=== PATIENT | male | born 1965 | race Hispanic/Latino ===

== ENCOUNTER 2021-12-27 18:30 | Inpatient (IN) | payer SELFPAY ==
--- NOTE | 2021-12-27 19:04 | RAD REPORT ---
EXAM DESCRIPTION: CT - Ct Stroke Brain Wo Cont - 12/27/2021 6:57 pm CLINICAL HISTORY: stroke symptoms COMPARISON: CT ABD PELVIS W CONTRAST dated 08/14/2011No comparisons TECHNIQUE: All CT scans are performed using dose optimization technique as appropriate and may inclu de automated exposure control or mA/KV adjustment according to patient size. FINDINGS: No intracranial hemorrhage, hydrocephalus or extra-axial fluid collection.No areas of brai n edema or evidence of midline shift. The paranasal sinuses and mastoids are clear. The calvarium is intact. IMPRESSION: No acute intracranial abnormality. Results called to Dr. Otto by Dr. Deleon at 1840 on 12/27/21
[2021-12-27 19:09] LABS: Absolute Lymphocytes (CBC) 1.7 K/uL (0.7-4.9); Hematocrit 37.7 % (39.6-49.0); Lymphocytes % 19.5 % (15.3-44.8); MCV 94.4 fL (80-100); RBC Red Blood Cell Count 3.99 M/uL (4.33-5.43)
[2021-12-27 19:15] LABS: Protime INR 1.03
[2021-12-27 19:24] LABS: Potassium 3.9 mmol/L (3.5-5.1)
[2021-12-27] MEDS ORDERED: ASPIRIN EC 325 MG TABLET PO ONE (19:45)
--- NOTE | 2021-12-27 20:04 | RAD REPORT ---
EXAM DESCRIPTION: RAD - Chest Single View - 12/27/2021 7:44 pm CLINICAL HISTORY: Stroke COMPARISON: No comparisons FINDINGS: Lines: None. Lungs: No evidence of edema or pneumonia. Pleural: No significant pleural effusions or pneumothorax. Cardiac: The heart size is within normal limits. Bones: No acute fractures. Other: IMPRESSION: No acute cardiopulmonary disease.
--- NOTE | 2021-12-27 20:21 | RAD REPORT ---
EXAM DESCRIPTION: CT - Neck Angio - 12/27/2021 8:14 pm CLINICAL HISTORY: stroke like symptoms COMPARISON: No comparisons TECHNIQUE: CT angiography of the neck vessels was performed with MIPs. All CT scans are performed using dose optimization technique as appropriate and may include automated exposure control or mA/KV adjustment according to patient size. FINDINGS: A left aortic arch is identified with normal three vessel configuration of the great vesse ls. No significant flow abnormality is seen of the common carotid bilaterally. No significant stenosis is identified involving the cervical segments of both internal carotid arteri es. Normal flow is seen within both vertebral arteries. IMPRESSION: No significant flow abnormality of the neck vessels is identified.
--- NOTE | 2021-12-27 20:21 | RAD REPORT ---
EXAM DESCRIPTION: CT - Head angio - 12/27/2021 8:13 pm CLINICAL HISTORY: stroke like symptoms COMPARISON: Ct Stroke Brain Wo Cont dated 12/27/2021 TECHNIQUE: CT angiography of the head was performed with MIPs. All CT scans are performed using dose optimization technique as appropriate and may include automated exposure control or mA/KV adjustment according to patient size. FINDINGS: Anterior circulation: ICA calcifications. No aneurysm or large vessel occlusion. No hemodynamically significant stenosis. N o arteriovenous malformation identified. Posterior circulation: type right INSURANCE SALES ASSOCIATE. No aneurysm or large vessel occlusion. No hemodynamically significant stenosis. No arteriovenous malformation identified. IMPRESSION: No significant flow abnormality is detected.
--- NOTE | 2021-12-27 20:44 | EDPHYS ---
Physician Documentation [facility] Name: Lio Brennan Age: 56 yrs Sex: Male : 1965 Arrival Date: 12/27/2021 Time: 18:31 Bed 3 Private MD: ED Physician Alessandro Kent HPI: 12/27 18:35 This 56 yrs old Male presents to ER via EMS with complaints of L sided sd2 weakness, fall. 18:35 56-year-old male with no known past medical history presents via EMS with chief sd2 complaint of left-sided weakness. They report the patient's last known well time was 1800 today and he began to have some left-sided weakness and had difficulty walking and fell and hit his head. They report when they arrived the patient was awake, alert with no focal neuro deficits. The patient then while they were speaking to him had acute onset of left-sided facial droop and left sided weakness which then subsequently resolved once again prior to arrival. Patient does not currently take any medications or blood thinners. He does not have any prior history of stroke. He denies any fevers, recent illness or other symptoms. He denies any recent substance abuse.. Historical: - Allergies: 18:35 No Known Allergies; bp - Home Meds: 18:35 None [Active]; bp - PMHx: 18:35 None; bp - Immunization history:: Adult Immunizations unknown. - Social history:: Smoking status: Patient denies any tobacco usage or history of. ROS: 18:35 Constitutional: Negative for fever, chills, and weight loss, Eyes: Negative for injury, sd2 pain, redness, and discharge, Cardiovascular: Negative for chest pain, palpitations, and edema, Respiratory: Negative for shortness of breath, cough, wheezing. Abdomen/GI: Negative for abdominal pain, nausea, vomiting, diarrhea. Back: Negative for injury and pain, MS/Extremity: Negative for injury and deformity, Skin: Negative for injury, rash, and discoloration, Neuro: Negative for headache, numbness and tingling. Positive for weakness and facial droop. Hematologic/Lymphatic: Negative for swollen nodes, abnormal bleeding, and unusual bruising. Exam: 18:35 Constitutional: This is a well developed, well nourished patient who is awake, alert, sd2 and in no acute distress. Head/Face: Normocephalic, atraumatic. 19:16 ECG was reviewed by the Attending Physician. Sinus bradycardia, rate 59, no STEMI sd2 criteria Vital Signs: 18:41 BP 129 / 83; Pulse 70; Resp 16; Temp 98; Pulse Ox 98% ; bp 18:43 BP 126 / 81; Pulse 68; Resp 16; Pulse Ox 100% ; bp 20:24 BP 140 / 70; Pulse 72; Pulse Ox 100% ; kl 21:51 BP 129 / 69; kl NIH Stroke Scale Scores: 19:28 NIHSS Score: 0 kl 22:56 NIHSS Score: 1 kl MDM: 18:34 Patient medically screened. sd2 19:16 Differential diagnosis: closed head injury, CVA, TIA, anemia, dehydration, electrolyte sd2 abnormality among others. Physician consultation: Remy Waters MD was called at 18:43, was contacted at 18:43, regarding consult, Recommends CTA to rule out LVO and need for transfer. Otherwise, give ASA and regular stroke workup with admission to hospital. . 19:20 ED course: CT head negative. CTA and labs pending. Pt remains asymptomatic aside from sd2 dizziness. Care of patient signed over to Dr. Kent at this time with disposition plan pending CTA results.. 12/28 05:45 Data reviewed: vital signs, nurses notes, lab test result(s), radiologic studies, and ms3 as a result, I will admit patient. Counseling: I had a detailed discussion with the patient and/or guardian regarding:. ED course: Discussed case with Zeferino Busch NP and he accepts patient on behalf of the Hospitalist group.. 12/27 18:50 Order name: Basic Metabolic Panel; Complete Time: 19:53 12/27 18:50 Order name: CBC with Diff; Complete Time: 19:53 12/27 18:50 Order name: Protime (+inr); Complete Time: 19:53 12/27 18:50 Order name: Ptt, Activated; Complete Time: 19:53 12/27 18:50 Order name: CT Stroke Brain w/o Contrast; Complete Time: 19:53 12/27 20:44 Order name: SARS RAPID as6 12/27 18:50 Order name: Stroke CXR 1 View; Complete Time: 20:14 sd2 /23 18:50 Order name: EKG; Complete Time: 18:50 12/27 18:50 Order name: Accucheck; Complete Time: 19:03 12/27 18:50 Order name: Cardiac monitoring; Complete Time: 19:03 12/27 18:50 Order name: EKG - Nurse/Tech; Complete Time: 19:03 12/27 18:50 Order name: CT Head Angio; Complete Time: 20:40 12/27 18:50 Order name: CT Neck Angio; Complete Time: 20:40 12/27 18:50 Order name: IV Saline Lock; Complete Time: 19:03 12/27 18:50 Order name: Labs collected and sent; Complete Time: 19:03 12/27 18:50 Order name: NPO; Complete Time: 19:03 12/27 18:50 Order name: O2 Per Protocol; Complete Time: 19:03 12/27 18:50 Order name: O2 Sat Monitoring; Complete Time: 19:03 12/27 18:50 Order name: Stroke Swallow Screen; Complete Time: 19:03 sd2 Administered Medications: 12/27 19:38 Drug: Aspirin 325 mg Route: PO; Disposition Summary: 12/27/21 20:43 Hospitalization Ordered Hospitalization Status: Inpatient Admission ms3 Provider: Alberto Villasenor ms3 Location: Telemetry/MedSurg (Inpatient) ms3 Condition: Stable ms3 Problem: new ms3 Symptoms: are unchanged ms3 [facility] Room Assignment: 201(12/27/21 22:04) as6 Diagnosis - Cerebrovascular accident ms3 Forms: - Medication Reconciliation Form ms3 - SBAR form ms3 NIH Stroke Scale - NIH Stroke Score Date: 12/27/2021 Time: 19:28 Total Score = 0 1a. Level of Consciousness (LOC) - 0(Alert) 1b. Level of Consciousness (LOC) (Month \T\ Age) - 0(Both) 1c. LOC Commands (Open \T\ Closes Eyes/Furniture Reproducer) - 0(Both) 2. Best Gaze (Lateral Gaze Paresis) - 0(Normal) 3. Visual Field Loss - 0(No visual loss) 4. Facial Palsy - 0(Normal) 5a. Left Arm: Motor (10-second hold) - 0(No drift) 5b. Right Arm: Motor (10-second hold) - 0(No drift) 6a. Left Leg: Motor (5-second hold - always test supine) - 0(No drift) 6b. Right Leg: Motor (5-second hold - always test supine) - 0(No drift) 7. Limb Ataxia (finger/nose \T\ heel/jama - test with eyes open) - 0(Absent) 8. Sensory Loss (pinprick arms/legs/face) - 0(Normal) 9. Best Language: Aphasia (description/naming/reading) - 0(No aphasia) 10. Dysarthria (speech clarity - read or repeat words) - 0(Normal) 11. Extinction and Inattention (visual/tactile/auditory/spatial/personal) - 0(No abnormality) Initials: nella NIH Stroke Scale - NIH Stroke Score Date: 12/27/2021 Time: 22:56 Total Score = 1 1a. Level of Consciousness (LOC) - 0(Alert) 1b. Level of Consciousness (LOC) (Month \T\ Age) - 0(Both) 1c. LOC Commands (Open \T\ Closes Eyes/Furniture Reproducer) - 0(Both) 2. Best Gaze (Lateral Gaze Paresis) - 0(Normal) 3. Visual Field Loss - 0(No visual loss) 4. Facial Palsy - 0(Normal) 5a. Left Arm: Motor (10-second hold) - 1(Drift) 5b. Right Arm: Motor (10-second hold) - 0(No drift) 6a. Left Leg: Motor (5-second hold - always test supine) - 0(No drift) 6b. Right Leg: Motor (5-second hold - always test supine) - 0(No drift) 7. Limb Ataxia (finger/nose \T\ heel/jama - test with eyes open) - 0(Absent) 8. Sensory Loss (pinprick arms/legs/face) - 0(Normal) 9. Best Language: Aphasia (description/naming/reading) - 0(No aphasia) 10. Dysarthria (speech clarity - read or repeat words) - 0(Normal) 11. Extinction and Inattention (visual/tactile/auditory/spatial/personal) - 0(No abnormality) Initials: Signatures: Dispatcher [employer] Ange Duong, RN RN Zeferino Hoffman, RADIOGRAPHIC TECHNOLOGIST-C RADIOGRAPHIC TECHNOLOGIST-Cla1 Jelani Phillips, RN RN bp Alessandro Kent, DO SILVA ms3 Eleuterio Ratliff RN RN as6 Jaky Otto sd2 Corrections: (The following items were deleted from the chart) 22: 20:43 ms3 as6 22:04 22:03 212 as6 as6
--- NOTE | 2021-12-27 20:44 | ER ---
Nurse's Notes [facility] Name: Lio Brennan Age: 56 yrs Sex: Male : 1965 Arrival Date: 12/27/2021 Time: 18:31 Bed 3 Private MD: Diagnosis: Cerebrovascular accident Presentation: 12/27 18:32 Chief complaint: EMS states: LEFT SIDED FLACCID ARM AND LEG, LEFT FACIAL DROOP ON bp SCENE, LAST KNOWN NORMAL 1720. Coronavirus screen: At this time, the client does not indicate any symptoms associated with coronavirus-19. Ebola Screen: No symptoms or risks identified at this time. Initial Sepsis Screen: Does the patient meet any 2 criteria? No. Patient's initial sepsis screen is negative. Does the patient have a suspected source of infection? No. Patient's initial sepsis screen is negative. Risk Assessment: Do you want to hurt yourself or someone else? Patient reports no desire to harm self or others. Onset of symptoms was December 27, 2021 at 18:00. Care prior to arrival: Glucose check: 176. 18:32 Method Of Arrival: EMS: [facility] bp 18:32 Acuity: RAYMOND 3 bp 19:30 No acute neurological deficit is noted. Triage Assessment: 18:35 General: Appears in no apparent distress. comfortable, Behavior is calm, cooperative, bp appropriate for age. Pain: Denies pain. EENT: No deficits noted. Neuro: Level of Consciousness is awake, alert, obeys commands, Oriented to Appropriate for age. Cardiovascular: No deficits noted. Respiratory: No deficits noted. GI: No signs and/or symptoms were reported involving the gastrointestinal system. : No signs and/or symptoms were reported regarding the genitourinary system. Derm: No deficits noted. Musculoskeletal: No deficits noted. 22:52 The onset of the patients symptoms was more than six hours ago. Historical: - Allergies: 18:35 No Known Allergies; bp - Home Meds: 18:35 None [Active]; bp - PMHx: 18:35 None; bp - Immunization history:: Adult Immunizations unknown. - Social history:: Smoking status: Patient denies any tobacco usage or history of. Screenin:40 Abuse screen: Denies threats or abuse. Denies injuries from another. Nutritional bp screening: No deficits noted. Tuberculosis screening: No symptoms or risk factors identified. Fall Risk None identified. 19:28 VAN Screening: Arm Drift: Patient shows no arm weakness. Patient is VAN negative. kl Visual Disturbance: No visual disturbance noted. Aphasia: No aphasia noted. Neglect: No neglect noted. 19:35 The patient is alert, able to follow commands. The patient does not exhibit slurred or kl garbled speech The patient is not exhibiting difficulty speaking. The patient does not exhibit difficulty understanding words. The patient is able to swallow own secretions with no drooling or need for suction. Patient tolerated one teaspoon of water. No drooling, immediate coughing, gurgling, or clearing of the throat was noted. The patient tolerated 90mL of water. No drooling, immediate coughing, gurgling, or clearing of the throat was noted. The patient passed the bedside swallow screening. Oral medications may be given as ordered. Contact Physician for further diet orders. Assessment: 18:40 General: PT RETURNED FROM CT. bp 20:23 Neuro: No deficits noted. Level of Consciousness is awake, alert, obeys commands, kl Oriented to person, place, time, situation, Range Manager are equal bilaterally Moves all extremities. Full function Speech is normal, Facial symmetry appears normal, Denies dizziness, difficulty swallowing, numbness headache. 22:48 The patient tolerated 90mL of water. No drooling, immediate coughing, gurgling, or kl clearing of the throat was noted. 22:49 The patient has not been NPO before screening. The patient is alert, and able to follow kl commands. 22:52 The patient is not exhibiting difficulty speaking. kl 22:56 The patient does not exhibit slurred or garbled speech. kl 22:57 The patient is able to swallow own secretions with no drooling or need for suction. kl 22:57 TNKase (Tenecteplase) Screening: Indications: Treatment will start within 4.5 hours kl onset of symptoms: No. 22:57 Patient tolerated one teaspoon of water. No drooling, immediate coughing, gurgling, or kl clearing of the throat was noted. Vital Signs: 18:41 BP 129 / 83; Pulse 70; Resp 16; Temp 98; Pulse Ox 98% ; bp 18:43 BP 126 / 81; Pulse 68; Resp 16; Pulse Ox 100% ; bp 20:24 BP 140 / 70; Pulse 72; Pulse Ox 100% ; kl 21:51 BP 129 / 69; kl NIH Stroke Scale Scores: 19:28 NIHSS Score: 0 kl 22:56 NIHSS Score: 1 ED Course: 18:31 Patient arrived in ED. ds4 18:32 Jelani Phillips, RN is Primary Nurse. bp 18:34 Jaky Otto is Attending Physician. sd2 18:35 Triage completed. bp 18:35 Arm band placed on. bp 18:40 Patient has correct armband on for positive identification. Bed in low position. Call bp light in reach. Side rails up X2. 18:50 Inserted saline lock: 20 gauge in right forearm, using aseptic technique. Blood bp collected. 18:58 CT Stroke Brain w/o Contrast In Process Unspecified. EDMS 19:45 Stroke CXR 1 View In Process Unspecified. EDMS 19:56 Attending Physician role handed off by Jaky Otto sd2 19:56 Alessandro Kent DO is Attending Physician. sd2 20:15 CT Head Angio In Process Unspecified. EDMS 20:15 CT Neck Angio In Process Unspecified. EDMS 20:23 No apparent distress. Resting quietly. Awaiting radiology results. Pt visited by son. 20:42 Alberto Villasenor MD is Hospitalizing Provider. ms3 21:09 SARS RAPID Sent. mh5 21:09 ABG drawn. RAPID COV. mh5 22:46 No provider procedures requiring assistance completed. kl 22:56 Patient admitted, IV remains in place. Administered Medications: 19:38 Drug: Aspirin 325 mg Route: PO; Medication: 18:40 VIS not applicable for this client. bp Outcome: 20:43 Decision to Hospitalize by Provider. ms3 22:46 Condition: good 22:52 Admitted to Med/surg accompanied by tech, room 201, Report called to phillip carmen 22:52 Instructed on the need for admit, Demonstrated understanding of instructions. 23:27 Patient left the ED. NIH Stroke Scale - NIH Stroke Score Date: 12/27/2021 Time: 19:28 Total Score = 0 1a. Level of Consciousness (LOC) - 0(Alert) 1b. Level of Consciousness (LOC) (Month \T\ Age) - 0(Both) 1c. LOC Commands (Open \T\ Closes Eyes/Pastrycook'S Assistant) - 0(Both) 2. Best Gaze (Lateral Gaze Paresis) - 0(Normal) 3. Visual Field Loss - 0(No visual loss) 4. Facial Palsy - 0(Normal) 5a. Left Arm: Motor (10-second hold) - 0(No drift) 5b. Right Arm: Motor (10-second hold) - 0(No drift) 6a. Left Leg: Motor (5-second hold - always test supine) - 0(No drift) 6b. Right Leg: Motor (5-second hold - always test supine) - 0(No drift) 7. Limb Ataxia (finger/nose \T\ heel/jama - test with eyes open) - 0(Absent) 8. Sensory Loss (pinprick arms/legs/face) - 0(Normal) 9. Best Language: Aphasia (description/naming/reading) - 0(No aphasia) 10. Dysarthria (speech clarity - read or repeat words) - 0(Normal) 11. Extinction and Inattention (visual/tactile/auditory/spatial/personal) - 0(No abnormality) Initials: NIH Stroke Scale - NIH Stroke Score Date: 12/27/2021 Time: 22:56 Total Score = 1 1a. Level of Consciousness (LOC) - 0(Alert) 1b. Level of Consciousness (LOC) (Month \T\ Age) - 0(Both) 1c. LOC Commands (Open \T\ Closes Eyes/Pastrycook'S Assistant) - 0(Both) 2. Best Gaze (Lateral Gaze Paresis) - 0(Normal) 3. Visual Field Loss - 0(No visual loss) 4. Facial Palsy - 0(Normal) 5a. Left Arm: Motor (10-second hold) - 1(Drift) 5b. Right Arm: Motor (10-second hold) - 0(No drift) 6a. Left Leg: Motor (5-second hold - always test supine) - 0(No drift) 6b. Right Leg: Motor (5-second hold - always test supine) - 0(No drift) 7. Limb Ataxia (finger/nose \T\ heel/jama - test with eyes open) - 0(Absent) 8. Sensory Loss (pinprick arms/legs/face) - 0(Normal) 9. Best Language: Aphasia (description/naming/reading) - 0(No aphasia) 10. Dysarthria (speech clarity - read or repeat words) - 0(Normal) 11. Extinction and Inattention (visual/tactile/auditory/spatial/personal) - 0(No abnormality) Initials: kl Signatures: Dispatcher [employer] EDAnge Cummings RN RN kl Swanson, Donovan 4 Shayy Nowak 5 Jelani Phillips RN RN bp Sims, Marcus, DO DO ms3 Clarita, Jaky sd2 Corrections: (The following items were deleted from the chart) 18:43 18:32 Chief complaint: EMS states: LEFT SIDED FLACCID ARM AND LEG, LEFT FACIAL bp DROOP ON SCENE, LAST KNOWN NORMAL 1800 bp 22:47 22:46 The onset of the patients symptoms was kl kl 22:48 20:30 The patient tolerated 90mL of water. No drooling, immediate coughing, kl gurgling, or clearing of the throat was noted. kl 22:48 20:25 The patient is alert, and able to follow commands. [facility]
--- NOTE | 2021-12-27 21:06 | P.HP ---
Certification for Inpatient Patient admitted to: Inpatient With expected LOS: >2 Midnights Patient will require the following post-hospital care: None Practitioner: I am a practitioner with admitting privileges, knowledge of patient current condition, hospital course, and medical plan of care. Services: Services provided to patient in accordance with Admission requirements found in Title 42 Section 412.3 of the Code of Federal Regulations Patient History Date of Service: 12/27/21 Reason for admission: Left-sided weakness, ischemic CVA History of Present Illness: 56-year-old male with no known past medical history presented to the emergency department with chief complaint of left-sided weakness, left facial droop. They reported his last known well was 1720, his symptoms had reportedly resolved at that time. Patient was evaluated in the emergency department his labs were significant for renal insufficiency, mild hyperglycemia CT head without contrast negative for acute findings chest x-ray was unremarkable he had a CT angio of the head and neck which were negative for large vessel occlusion or other acute findings. ED provider discussed case with neurology who recommended patient be admitted for further stroke work-up as there is no LVO. When I went to examine the patient he informed me that he has been having left-sided weakness, d izziness and some difficulties with the speech that started at 0200 last night and has been having additional symptoms periodically throughout the day. He does have some left arm drift, left-sided facial droop and some mild expressive aphasia. He was given aspirin in the emergency department. Will admit for further evaluation and management of suspected ischemic CVA. NIH score is 4 currently. - Past Medical/Surgical History -: None -: None Psychosocial/ Personal History: Patient lives at home with his family - Family History Father -: Stroke Brother -: Heart disease - Social History Smoking Status: Current every day smoker Counseled patient to stop smoking for: less than 10 minutes Alcohol use: No CD- Drugs: No Caffeine use: Yes Place of Residence: Home Review of Systems 10-point ROS is otherwise unremarkable Neurological: Weakness, Change in Speech, Other (Dizziness) Physical Examination - Physical Exam General: Alert, In no apparent distress, Oriented x3 HEENT: Atraumatic, PERRLA, Mucous membr. moist/pink, EOMI, Sclerae nonicteric Neck: Supple, 2+ carotid pulse no bruit, No LAD, Without JVD or thyroid abnormality Respiratory: Clear to auscultation bilaterally, Normal air movement Cardiovascular: Regular rate/rhythm, Normal S1 S2 Gastrointestinal: Normal bowel sounds, No tenderness Musculoskeletal: No tenderness Integumentary: No rashes Neurological: Normal gait, Normal tone, Normal affect, Abnormal speech (Mild expressive aphasia), Abnormal strength (Left arm drift, left-sided facial droop) - Studies Laboratory Data (last 24 hrs) 12/27/21 19:00: PT 11.3, INR 1.03, APTT 32.3 12/27/21 19:00: WBC 8.9, Hgb 12.8 L, Hct 37.7 L, Plt Count 196 12/27/21 19:00: Sodium 139, Potassium 3.9, BUN 21 H, Creatinine 1.51 H, Glucose 156 H Assessment and Plan - Plan Assessment: Left-sided weakness, mild expressive aphasia suspect ischemic CVA Renal insufficiency Hyperglycemia Plan: Left-sided weakness, mild expressive aphasia suspect ischemic CVA: NIH currently 4 with left upper extremity drift about in bed, mild aphasia, lower facial weakness. CT head without contrast as well as CTA of the head and neck negative for acute findings no LVO. Will initiate therapy with aspirin, Plavix, statin, folic acid and obtain further stroke work-up including echo, MRI, carotid Doppler. Monitor on telemetry. Speech and physical therapy consults in place, will obtain lipid panel. Renal insufficiency: Continue gentle IV fluids overnight no labs available comparison no known history of renal disease. Hyperglycemia: Obtain A1c in the morning. Not a known diabetic. Mild hyperglycemia. DVT PPX: Lovenox Code status: Full Discharge Plan: Home Plan to discharge in: 72 Hours - Advance Directives Does patient have a Living Will: No Does patient have a Durable POA for Healthcare: No - Code Status/Comfort Care Code Status Assessed: Yes (Full code) Critical Care: No Time Spent Managing Pts Care (In Minutes): 70
[2021-12-27 21:31] LABS: SARS-CoV-2 Antigen Rapid Res Negative (Negative)
[2021-12-27] MEDS ORDERED: ONDANSETRON 4 MG/2 ML VIAL IV PRN (22:59)
[2021-12-27 23:28] VITALS: BMI 27.3
[2021-12-27] MEDS: NA CHLORIDE 0.9% 1,000 ML IV SCH (23:44)
[2021-12-27] MEDS: ATORVASTATIN 40 MG TAB PO SCH (23:44)
[2021-12-28 04:31] LABS: Absolute Lymphocytes (CBC) 3.3 K/uL (0.7-4.9); Hematocrit 36.2 % (39.6-49.0); Lymphocytes % 27.8 % (15.3-44.8); MCV 94.5 fL (80-100); RBC Red Blood Cell Count 3.83 M/uL (4.33-5.43)
[2021-12-28 05:04] LABS: Bilirubin Total 0.2 mg/dL (0.2-1.0); Protein, Total 5.9 g/dL (6.4-8.2); Thyroid Stimulating Hormone 1.68 uIU/mL (0.360-3.740)
[2021-12-28] MEDS: FOLIC ACID 1 MG TABLET PO SCH (09:56)
[2021-12-28] MEDS: ASPIRIN EC 81 MG TAB PO SCH (09:56)
[2021-12-28] MEDS: ENOXAPARIN 40 MG/0.4 ML SQ SCH (09:56)
[2021-12-28] MEDS: CLOPIDOGREL 75 MG TABLET PO SCH (09:56)
[2021-12-28 12:26] VITALS: O2SAT 95
--- NOTE | 2021-12-28 14:08 | P.PN ---
Date of Service: 12/28/21 Subjective: no acute events overnight reports headache feels weakness has improved ROS: 10 point ROS as noted above, otherwise negative Physical exam GEN: Alert, oriented, NAD HEENT: Normal conjunctiva, sclera anicteric CV: Regular rate and rhythm, no edema Pulm: Non-labored respirations on room air ABD: Soft, nontender, nondistended Integumentary: No rashes Neuro: Normal speech, normal affect, CNII-XII grossly intact; normal strength bilaterally upper and lower extremities intact sensation to light touch in b/l upper and lower extremities Problem List Left-sided weakness, mild expressive aphasia suspect ischemic CVA DENIA, prerenal - hypovolemia Hyperglycemia Patient's story seems to change from ER -> admission -> now states he has been working outside [employer], felt generally fatigued and overheated at work, took breaks in shade On Wednesday after work, he felt very fatigued but ok; ~1-2 days later he felt his arms and legs were heavy, and long distant vision was worse denies any recent illness, no fever, no sick contacts. symptoms appeared 24-48hrs after being home and not out in the sun. Temp normal on presentation; not hyperthermic CT head and CTA negative. MRI and echo pending continue empiric therapy- aspirin, plavix, statin, folic acid neurology consulted borderline A1c PT DENIA resolving, continue IVF; dehydrated VTE: lovenox Code: full Dispo: home, tomorrow pending further workup Time Spent Managing Pts Care (In Minutes): 35
[2021-12-28] MEDS: ATORVASTATIN 40 MG TAB PO SCH (20:14)
[2021-12-28] MEDS: NA CHLORIDE 0.9% 1,000 ML IV SCH (20:14)
[2021-12-28] MEDS ORDERED: ACETAMINOPHEN 325 MG TABLET PO PRN (20:27)
[2021-12-29 04:29] LABS: Absolute Lymphocytes (CBC) 3.1 K/uL (0.7-4.9); Hematocrit 35.1 % (39.6-49.0); Lymphocytes % 31.4 % (15.3-44.8); MCV 94.3 fL (80-100); MPV 9.1 fL (7.6-11.3); RBC Red Blood Cell Count 3.72 M/uL (4.33-5.43)
[2021-12-29 04:51] LABS: Bilirubin Total 0.3 mg/dL (0.2-1.0); Potassium 4.2 mmol/L (3.5-5.1); Protein, Total 5.8 g/dL (6.4-8.2)
--- NOTE | 2021-12-29 09:00 | RAD REPORT ---
EXAM DESCRIPTION: MRI - MRA Head Wo Cont - 12/29/2021 8:40 am CLINICAL HISTORY: Right basal ganglia CVA, stroke-like symptoms COMPARISON: CTA head December 27, CT head December 27, MRI brain December 29 TECHNIQUE: Axial and coronal 3D [id number] image acquisition was performed. 3D rotational images were generated with source and reconstruction images reviewed. Horizontal and vertical axis rotation al views generated using MIP protocol. FINDINGS: Distal vertebral arteries are minimally tortuous but otherwise unremarkable. No basilar ar edward or posterior cerebral distribution abnormality seen. Distal internal carotid arteries to the supraclinoid termination show no dissection, stenosis or susp icious vascular finding. Bilateral anterior cerebral artery A1 segment show slightly irregular wall contour that may be in par t motion artifact. Atherosclerotic disease is possible. Anterior communicating artery is present. The more distal branches of the anterior cerebral artery distributions are unremarkable. The left middle cerebral artery distribution shows no named branch occlusion, dissection, vasculitis or suspicious finding. Proximal portion of the right middle cerebral artery shows irregular contour indicating a mild to mod erate for age atherosclerotic process. Motion artifact is less likely given the absence of left MCA m otion artifact. No named branch occlusion. The right basal ganglia infarction is caused by small perf orating vessel occlusion. The small vessels are MRA occult. Small irregular right posterior communica ting artery is present. IMPRESSION: Atherosclerotic changes are present in the proximal right MCA, right SARAH A1 segment and a small right posterior communicating artery. The right basal ganglia infarction in this patient is due to occlusion of small perforating vessels p rimarily arising from the proximal right MCA. Irregular contour of this vessel would suggest the infa rction is due to atherosclerotic changes of the small perforating branches rather than a distal embol ic process.
--- NOTE | 2021-12-29 09:20 | RAD REPORT ---
EXAM DESCRIPTION: MRI - MRA Neck W/Wo Cont - 12/29/2021 8:40 am CLINICAL HISTORY: Right basal ganglia CVA COMPARISON: MRI brain same date, carotid ultrasound December 28 TECHNIQUE: MR angiography of the cervical vasculature performed. Coronal imaging plane acquisition u tilized. A 17 MultiHance contrast volume was utilized. Coronal reformatted images were generated and reviewed. Vertical axis 3D rotational projections obtained using maximum intensity projection protoco l. FINDINGS: Motion artifacts are present affecting the aortic arch and proximal portions of the carotid and verte bral vasculature. Aortic arch is 3 vessel. No origin stenosis suspected. No vertebral artery origin stenosis suspected. Imaged portions of the subclavian arteries unremarkable. B bilateral common carotid and internal carotid arteries show no dissection, stenosis or significant atherosclerotic change. Codominant vertebral arteries also without suspicious finding. IMPRESSION: No cervical carotid or vertebral vascular abnormalities identifiable.
--- NOTE | 2021-12-29 09:21 | RAD REPORT ---
EXAM DESCRIPTION: MRI - Brain W/Wo Cont - 12/29/2021 8:27 am CLINICAL HISTORY: SUSPECTED CVA, stroke-like symptoms, weakness COMPARISON: MRA Head Wo Cont dated 12/29/2021 TECHNIQUE: Sagittal and axial T1-weighted images were obtained. Axial PD/heavily T2-weighted and T2- FLAIR images were obtained along with axial DWI/ADC mapping sequences. Coronal heavily T2 weighted s equence obtained. Axial and coronal post-contrast T1-weighted images were also obtained. A 17 ml Mul tihance contrast following utilized. FINDINGS: No intracranial hemorrhage is present. The patient has a large 4.5 x 1.5 centimeter area o f nonhemorrhagic acute/ subacute infarction involving the lentiform nucleus and caudate lobe. No thal amus involvement. Infarction crosses the anterior limb internal capsule and abuts the posterior limb without definitive involvement. No other areas of acute or subacute infarction. No underlying atrophy or chronic ischemic changes seen. Ventricles are normal. There is no edema or shift of midline struc tures. No extra-axial fluid collections. Donald-matter/white matter junction is preserved. Signal void s are seen as a normal finding in the major intracranial vessels. Post-contrast images show normal enhancement. No dural thickening. Mastoid air cells and paranasal sinuses are clear. IMPRESSION: Acute/subacute nonhemorrhagic CVA of the right-side basal ganglia (head of the caudate, globus pallidus and putamen).
--- NOTE | 2021-12-29 09:29 | EKG ---
Test Date: 2021-12-27 Test Time: 18:58:15 Senior Technical Business Analyst: BP MEASUREMENT RESULTS: Intervals: Rate: 59 RI: 124 QRSD: 82 QT: 422 QTc: 417 [place]: P: 52 RI: 124 QRS: 46 T: 28 INTERPRETIVE STATEMENTS: Sinus bradycardia Nonspecific T wave abnormality Abnormal ECG No previous ECG available for comparison Electronically Signed On 12-29-21 09:25:01 CDT by Erick Bass
[2021-12-29] MEDS: ASPIRIN EC 81 MG TAB PO SCH (10:01)
[2021-12-29] MEDS: CLOPIDOGREL 75 MG TABLET PO SCH (10:01)
[2021-12-29] MEDS: FOLIC ACID 1 MG TABLET PO SCH (10:02)
[2021-12-29] MEDS: ENOXAPARIN 40 MG/0.4 ML SQ SCH (10:02)
--- NOTE | 2021-12-29 14:03 | ECHO ---
HEIGHT: 5 ft 6 in WEIGHT: 169 lb 4.8 oz DATE OF STUDY: 12/29/[address]: Zeferino Harrell NP 2-DIMENSIONAL: YES M.MODE: YES DOPPLER: YES COLOR FLOW: YES TDS: NO PORTABLE: YES DEFINITY: NO BUBBLE STUDY: NO DIAGNOSIS: SUSPECTED CEREBRAL VASCULAR ACCIDENT CARDIAC HISTORY: CATHERIZATION: NO SURGERY: NO PROSTHETIC VALVE: NO PACEMAKER: NO MEASUREMENTS (cm) DIASTOLIC (NORMALS) SYSTOLIC (NORMALS) IVSd 1.0 (0.6-1.2) LA Diam 2.9 (1.9-4.0) LVEF 65% LVIDd 4.0 (3.5-5.7) LVIDs 2.6 (2.0-3.5) %FS 35% LVPWd 1.0 (0.6-1.2) Ao Diam 2.7 (2.0-3.7) 2 DIMENSIONAL ASSESSMENT: RIGHT ATRIUM: NORMAL LEFT ATRIUM: NORMAL RIGHT VENTRICLE: NORMAL LEFT VENTRICLE: NORMAL TRICUSPID VALVE: NORMAL MITRAL VALVE: PULMONIC VALVE: NORMAL AORTIC VALVE: PERICARDIAL EFFUSION: NONE AORTIC ROOT: NORMAL LEFT VENTRICULAR WALL MOTION: NORMAL DOPPLER/COLOR FLOW: SEE BELOW COMMENTS: NORMAL LEFT VENTRICULAR EJECTION FRACTION 60-65%. NORMAL WALL MOTION. NORMAL DIASTOLIC FUNCTION. MILD AORTIC AND MITRAL REGURGITATION. TECHNOLOGIST: Jatinder JACOBSON
--- NOTE | 2021-12-29 16:15 | RAD REPORT ---
EXAM DESCRIPTION: US - Carotid Artery Bilateral - 12/28/2021 1:27 am CLINICAL HISTORY: 56 years, Male, Suspected CVA COMPARISON: CT head report from 12/27/2021. The images were unavailable for comparison. FINDINGS: Sonographic grayscale, color and Doppler interrogation of the carotid and vertebral arteri es was performed on 12/28/2021 at 12: 51 AM. Minimal soft and hard plaque is noted along the proximal internal carotid arteries. Systolic and diastolic arterial velocities are as follows: RIGHT: CCA mid, 93 cm/sec, 14 cm/sec Carotid bulb, 63 cm/sec, 15 cm/sec ICA proximal, 114 cm/sec, 14 cm/sec ICA mid, 75 cm/sec, 25 cm/sec ICA distal, 94 cm/sec, 27 cm/sec ECA, 122 cm/sec Vertebral, 59 cm/sec antegrade ICA/ CCA = 1.2 LEFT: CCA mid, 99 cm/sec, 19 cm/sec Carotid bulb, 59 cm/sec, 12 cm/sec ICA proximal, 67 cm/sec, 25 cm/sec ICA mid, 86 cm/sec, 25 cm/sec ICA distal, 95 cm/sec, 39 cm/sec ECA, 111 cm/sec Vertebral, 60 cm/sec antegrade ICA/ CCA = 1.0 IMPRESSION: 1. Normal bilateral carotid artery ultrasound. There is no evidence of a hemodynamical ly significant stenosis. 2. Vertebral flow is antegrade bilaterally. Electronically signed by: Kiana Anderson DO 12/28/2021 5:02 AM CDT Due to temporary technical issues with the PACS/Fluency reporting system, reports are being signed by the in house radiologists without review as a courtesy to insure prompt reporting. The interpreting radiologist is fully responsible for the content of the report.
[2021-12-29 17:07] VITALS: BP 144/70; TEMP 97.6
--- NOTE | 2021-12-29 20:08 | P.DS ---
Admission Date: 12/27/21 Discharge Date: 12/29/21 Disposition: ROUTINE DISCHARGE Discharge Condition: GOOD Reason for Admission: Left-sided weakness, ischemic CVA Consultations: Alfreda - Evelin Brief History of Present Illness: 56-year-old male with no known past medical history presented to the emergency department with chief complaint of left-sided weakness, left facial droop. They reported his last known well was 1720, his symptoms had reportedly resolved at that time. Patient was evaluated in the emergency department his labs were significant for renal insufficiency, mild hyperglycemia CT head without contrast negative for acute findings chest x-ray was unremarkable he had a CT angio of the head and neck which were negative for large vessel occlusion or other acute findings. ED provider discussed case with neurology who recommended patient be admitted for further stroke work-up as there is no LVO. When I went to examine the patient he informed me that he has been having left-sided weakness, dizziness and some difficulties with the speech that started at 0200 last night and has been having additional symptoms periodically throughout the day. He does have some left arm drift, left-sided facial droop and some mild expressive aphasia. He was given aspirin in the emergency department. Hospital Course: Problem List L lower facial weakness secondary to ischemic CVA Left-sided weakness, mild expressive aphasia secondary to ischemic CVA; resolved DENIA, prerenal - hypovolemia; resolved Patient evaluated for his left facial droop and arm weakness. CT head was negative. Carotid ultrasound was normal. MRI of brain was performed which revealed a 4.5x1.5 right sided stroke in the basal ganglia - which would explain his symptoms. He had resolution of his symptoms except for some left sided facial droop. MRA of his brain showed atherosclerosis in the artery leading to where he had his stroke. Imaging reviewed with Dr. Waters Recommended lowering risk of stroke by no longer smoking, low fat diet, and will be discharged home with aspirin, atorvastatin, and folic acid. Discussed he only has minor symptoms as this point and has the potential to improve over the next several months. Important to continue to use these muscles. Recommended staying well hydrated when at work. He may notice some minor symptoms / weakness while he gets back to his daily routine - symptoms that he doesn't notice now. Follow up with PCP in ~ 1 week. Vital Signs/Physical Exam: Temp Pulse Resp BP Pulse Ox 97.6 F 45 L 18 144/70 H 99 12/29/21 16:00 12/29/21 16:00 12/29/21 16:00 12/29/21 16:00 12/29/21 16:00 Physical exam GEN: Alert, oriented, NAD HEENT: Normal conjunctiva, sclera anicteric CV: Regular rate and rhythm, no edema Pulm: Non-labored respirations on room air ABD: Soft, nontender, nondistended Integumentary: No rashes Neuro: Normal speech, normal affect, CNII-XII grossly intact with exception of left lower facial weakness/droop; normal strength bilaterally upper and lower extremities intact sensation to light touch in b/l upper and lower extremities Laboratory Data at Discharge: WBC 9.8 K/uL (4.3-10.9) D 12/29/21 04:10 Hgb 12.0 g/dL (13.6-17.9) L 12/29/21 04:10 Hct 35.1 % (39.6-49.0) L 12/29/21 04:10 Plt Count 173 K/uL (152-406) 12/29/21 04:10 PT 11.3 SECONDS (9.5-12.5) 12/27/21 19:00 INR 1.03 12/27/21 19:00 APTT 32.3 SECONDS (24.3-36.9) 12/27/21 19:00 Sodium 142 mmol/L (136-145) 12/29/21 04:10 Potassium 4.2 mmol/L (3.5-5.1) 12/29/21 04:10 BUN 15 mg/dL (7-18) 12/29/21 04:10 Creatinine 0.88 mg/dL (0.55-1.3) 12/29/21 04:10 Glucose 109 mg/dL (74-106) H 12/29/21 04:10 Total Bilirubin 0.3 mg/dL (0.2-1.0) 12/29/21 04:10 AST 10 U/L (15-37) L 12/29/21 04:10 ALT 17 U/L (12-78) 12/29/21 04:10 Alkaline Phosphatase 71 U/L (45-117) 12/29/21 04:10 Triglycerides 189 mg/dL (<150) H 12/28/21 03:58 Cholesterol 181 mg/dL (<200) 12/28/21 03:58 HDL Cholesterol 30 mg/dL (40-60) L 12/28/21 03:58 Cholesterol/HDL Ratio 6.03 12/28/21 03:58 Home Medications: Aspirin [Aspirin EC 81 MG] 81 mg PO DAILY 30 Days #30 tablet. 12/29/21 Atorvastatin Calcium [Lipitor] 40 mg PO BEDTIME 30 Days #30 tab 12/29/21 Folic Acid 1 mg PO DAILY 30 Days #30 tablet 12/29/21 New Medications: Aspirin [Aspirin EC 81 MG] 81 mg PO DAILY 30 Days #30 tablet. Folic Acid 1 mg PO DAILY 30 Days #30 tablet Atorvastatin Calcium [Lipitor] 40 mg PO BEDTIME 30 Days #30 tab Physician Discharge Instructions: PLEASE COMPLETE GOLD SHEET FOR STROKE PLEASE COMPLETE PATIENT SATISFACTION FOR STROKE Patient evaluated for his left facial droop and arm weakness. CT head was negative. Carotid ultrasound was normal. MRI of brain was performed which revealed a 4.5x1.5 right sided stroke in the basal ganglia - which would explain his symptoms. He had resolution of his symptoms except for some left sided facial droop. MRA of his brain showed atherosclerosis in the artery leading to where he had his stroke. Imaging reviewed with Dr. Waters Recommended lowering risk of stroke by no longer smoking, low fat diet, and will be discharged home with aspirin, atorvastatin, and folic acid. Discussed he only has minor symptoms as this point and has the potential to improve over the next several months. Important to continue to use these muscles. Recommended staying well hydrated when at work. He may notice some minor symptoms / weakness while he gets back to his daily routine - symptoms that he doesn't notice now. Follow up with PCP in ~ 1 week. Diet: AHA Activity: Ad rachel Followup: NONE,NONE [Primary Care Provider] - Time spent managing pt's care (in minutes): 45
== END 2021-12-29 19:25 | disposition home or self-care (01) | DRG 65 ==
LOC: ER 18:30 → ERHOLD 20:55 → 2ND 22:29
PROVIDERS: ADMIT Hospitalist; ATTEND Hospitalist
DX: I63.9 Cerebral infarction, unspecified (principal); N17.9 Acute kidney failure, unspecified; R29.810 Facial weakness; R47.01 Aphasia; G83.24 Monoplegia of upper limb affecting left nondominant side; R29.704 NIHSS score 4; R73.9 Hyperglycemia, unspecified; E86.1 Hypovolemia; F17.210 Nicotine dependence, cigarettes, uncomplicated; Z20.822 Contact with and (suspected) exposure to COVID-19
CPT/HCPCS: 36415; 70450; 70496; 70498; 70544; 70549; 70553; 71045; 80048; 80053; 80061; 83036; 84439; 84443; 85025; 85610; 85730; 87811; 93005; 93306; 93880; 97116; 97161; 99285; A9577; J1650; J7030; Q9967